=== PATIENT | female | born 1955 | race African-American/Black ===

== ENCOUNTER 2019-08-30 23:16 | Emergency (ER) | payer MEDICARE, MEDICAID ==
[~2019-08-30] VITALS: Ht 165.1 cm; Wt 104.0 kg
[2019-08-30 23:31] VITALS: BP 184/103
== END 2019-08-31 02:47 | disposition left against medical advice (07) ==
LOC: ER 23:16
DX: Z53.21 Procedure and treatment not carried out due to patient leaving prior to being seen by health care provider (principal)